=== PATIENT | female | born 1970 | race Two or more races ===

== ENCOUNTER 2016-10-07 04:11 | Emergency (ER) | payer MEDICAID ==
[~2016-10-07] VITALS: Ht 165.1 cm; Wt 61.2 kg
[2016-10-07] MEDS ORDERED: diphenhdrAMINE HCL 25 MG CAP PO ONE ×2 (04:25→04:45)
[2016-10-07 06:00] LABS: Urine Bilirubin Negative (Negative); Urine Color Yellow (Yellow); Urine Glucose Normal (Normal); Urine Ketone Negative (Negative); Urine Mucus FEW (None Seen); Urine Nitrite Negative (Negative); Urine RBC 20 /hpf (0 - 4); Urine Squamous Epithelial Cell FEW /hpf (<5); Urine Urobilinogen Normal (Negative)
[2016-10-07 06:01] LABS: Urine Blood 1+ /uL (Negative)
[2016-10-07 06:49] VITALS: BP 126/71
== END 2016-10-07 09:09 | disposition home or self-care (01) ==
LOC: ER 04:13
DX: L25.9 Unspecified contact dermatitis, unspecified cause (principal)
CPT/HCPCS: 81001; 81025